=== PATIENT | male | born 1970 | race Caucasian/White ===

== ENCOUNTER → 2017-12-28 | Day surgery (SDC) | payer OTHER ==
[2017-12-21 10:52] VITALS: Ht 186.7 cm; Wt 106.8 kg
[~2017-12-28] VITALS: Ht 186.7 cm; Wt 106.8 kg
[~2017-12-28] MED LIST: ATROPINE SULFATE 0.1 MG/ML 5ML SYR IV PRN; BUPIVACAINE/EPINEPHRINE 0.5% MPF 1:200,000 30 ML VIAL ONE; CEFAZOLIN 2000MG IV PUSH 15 ML IV SCH; DEXAMETHASONE SOD INJ 4 MG/ML VIAL ONE; EpHEDrine SULFATE INJ 50 MG/ML AMP IV PRN; FENTANYL CITRATE INJ 50 MCG/1 ML 2 ML VIAL IV PRN; FENTANYL CITRATE INJ 50 MCG/1 ML 2 ML VIAL ONE; HYDROCODONE/ACETAMIN 5/325MG TAB PO PRN; IBUP-1459 PO; LACTATED RINGER'S 1000ML 1,000 ML IV SCH; LIDOCAINE HCL 2% 2 ML VIAL (20MG/ML) ONE; MIDAZOLAM HCL 1 MG/ML 2ML VIAL ONE; MoRPHine SULFATE PF 1 MG/ML 10 ML AMP/VIAL ONE; ONDANSETRON INJ 2 MG/ML 2 ML VIAL IV PRN; ONDANSETRON INJ 2 MG/ML 2 ML VIAL ONE; PROPOFOL IV EMULSION 10 MG/ML 20 ML VIAL ONE; SODIUM CHLORIDE 0.9% 1000ML 1,000 ML IV SCH
--- NOTE | 2017-12-28 06:43 | History & Physical Bridge Note ---
H&P Re-Evaluation Bridge Note: I have examined the patient, reviewed the History & Physical and in the interval since the performance of the History & Physical I have noted the following changes of clinical significance:consent obtained. No changes noted
--- NOTE | 2017-12-28 06:44 | Discharge Instructions ---
Discharge Instructions Date of Service Dec 28, 2017. Visit Reason for Visit: Right Knee Medial Meniscus Tear, Chondrosis Discharge Discharge Diagnosis / Problem: same Discharge Goals Goal(s): Decrease discomfort, Improve function Medications Stopped Medications Name(s): na Restart Stopped Medication(s): use scripts as directed Activity Recommendations Activity Limitations: as noted below Lifting Limitations: until after follow-up appointment Exercise/Sports Limitations: until after follow-up appointment May Resume Sexual Activity: when tolerated Shower/Bathe: keep incision dry Driving or Machine Use: resume 1 day after discharge Weightbearing Status: Right weightbearing (as tolerated) Anesthesia . Post Anesthesia Instructions: If you have had General Anesthesia or IV Sedation: * Do not drive today. * Resume driving when surgeon permits. * Do not make important decisions or sign legal documents today. * Call surgeon for: 1. Temperature elevations greater than 101 degrees F. 2. Uncontrollable pain. 3. Excessive bleeding. 4. Persistent nausea and vomiting. 5. Medication intolerance (nausea, vomiting or rash). * For nausea and vomiting use only clear liquids such as: tea, soda, bouillon until nausea subsides, then gradually increase diet as tolerated. * If you have any concerns or questions, call your surgeon's office. If physician is unavailable and it is an emergency, call 911 or go to the nearest emergency room. . Instructions / Follow-Up Instructions / Follow-Up The following are instructions to follow after your Arthroscopic Knee Surgery. ACTIVITY RECOMMENDATIONS: * Minimize activity until your first visit after surgery. * No excessive walking, jogging, sports or laboring. * Return to activity is individualized. Most patients are able to return to every day activities within one month. * Return to sports or intensive labor usually occurs at 2-3 months. * Driving is not permitted until at least your first postoperative visit at a minimum. Please ask your doctor when it is safe to resume driving. If you have an automatic vehicle and your left leg has been operated on, then you may begin driving as soon as you are comfortable and can drive safely. SCHOOL/WORK RECOMMENDATIONS: * You may return to sedentary work or school when you are feeling more comfortable. This is usually 3-7 days after surgery. * Expect increased discomfort with increased activity. Continue to elevate and ice the leg as much as possible. MEDICATIONS: * You will have a prescription for pain medication and an anti-inflammatory medication after surgery. * Use the pain medication for severe pain and the anti-inflammatory for less severe pain. Once the pain medication has run out, try to use the anti-inflammatory medication. If this is not effective, contact the office for assistance. * The pain medication may cause nausea, constipation and drowsiness. You should see how they affect you before driving or similar activity. * The anti-inflammatory medication may cause stomach upset and bleeding. If this occurs let your doctor know immediately . * Take a stool softener like Colace or a laxative like Senokot to prevent constipation. DIET: * Resume previous diet. SPECIAL CARE: ICE: You have the option of an ice cooler, gel packs or ice bags. * If you have an ice cooler, refer to the instructions for that device. The ice cooler may be used continuously. * If you do not have an ice cooler, you will need to use ice bags or gel packs. Do not apply ice directly to the skin. Use a thin dressing or bruna shirt between the skin and ice bag. Apply ice for 20-30 minutes and repeat every 2-4 hours. This is especially important for the first 7-10 days after surgery. Once the pain improves, use ice as needed. ELEVATION: * Keep your leg elevated at or above the level of your heart as much as possible. * Expect some increased discomfort and swelling if you are standing for any length of time. * When lying down, avoid placing anything under your knee. Rather, prop your leg up by placing several pillows under your heel or calf. DRESSING: * Your dressing will be changed at your first therapy appointment approximately 4-5 days after surgery. Band-aids, tape strips or gauze may be applied. You may then change your dressing daily. * Reapply dressing followed by the Rupesh wrap or Tubi-salvage mechanic stockinet and EBIce cooling pad (if chosen). * Always wash your hands prior to touching the incision area. * Once the stitches are removed, you may leave the wound open to air or cover with an Rupesh wrap or Tubi-salvage mechanic stockinet. * If you have been given a white elastic stocking (TRIP hose), wear as much as possible for the first 1-3 weeks depending on swelling. * Expect some bloody drainage for the first few days after surgery. * Leave the tape strips, if present, in place for 5-7 days. * Band-aids and gauze may be changed daily. CRUTCHES: * You will need to use crutches after surgery. * You may gradually progress to full weight bearing as tolerated and wean off the crutches unless otherwise advised. * Your therapist can provide assistance weaning off crutches. * Patients who have a microfracture done may need to be toe-touch weight- bearing for 4-6 weeks. BATHING: * You may shower or sponge-bathe immediately after surgery. * The dressing will need to be covered with a plastic bag or plastic wrap until the dressing is changed on the fourth or fifth day after surgery. * Once the dressing has been changed on the fourth or fifth day after surgery, you may shower and get the incision wet. * Wash with regular soap and water. * Do not bathe (submerge the incision), soak, swim or use a hot tub until the incision is completely healed over with normal skin and the doctor has given the OK to proceed. * There is no need to apply any ointments, powders or salves to your incision. * Do not apply alcohol or hydrogen peroxide directly to the incision. * Diluted peroxide (50:50 mixture with sterile saline) may be used to clean dried blood from around the incision area. BRACE: * Bracing is generally not needed after routine Arthroscopic Knee surgery. THERAPY: * You will begin therapy four or five days after surgery. * Organized therapy with the therapist is important for the first 4-6 weeks after surgery. During that time you will attend therapy 1-3 times per week. * You will also need to do daily exercises for range of motion and strength as instructed. PROBLEMS/QUESTIONS: * If you have any problems such as severe pain, numbness, tingling or high fevers or if you have any questions, please contact the office at [phone]. * It is not uncommon to have some numbness and tingling after the surgery especially if you have had a nerve block done. This should gradually improve over the first 1- 2 days. If this persists longer or worsens please contact the office. FOLLOW UP VISIT: * If not already scheduled, please call the office at to schedule a follow-up appointment for 10 days, 6 weeks and 3 months after surgery. Diet Recommendations Recommended Home Diet: resume previous diet Procedures Procedures Performed: see op note Pending Studies Studies pending at discharge: no Medical Emergencies . Who to Call and When: Medical Emergencies: If at any time you feel your situation is an emergency, please call 911 immediately. . Non-Emergent Contact Non-Emergency issues call your: Specialist Call Non-Emergent contact if: temperature is above 101.5, wound has increased drainage, wound has increased redness, wound has increased pain . . "Provider Documentation" section prepared by Alex Jacobs. .
--- NOTE | 2017-12-28 07:30 | [facility] Post Operative Brief Note ---
Immediate Operative Summary Operative Date Dec 28, 2017. Pre-Operative Diagnosis Right Knee Medial Meniscus Tear, Chondrosis Post-Operative Diagnosis Same Procedure(s) Performed Right Knee Arthroscopy, Partial Medial Meniscectomy, Chondroplasty of Patellofemoral Joint and Medial Femoral Condyle Surgeon Dr. Jacobs Appliance Adjuster Surgeon(s) Dane Rankin PA-C Estimated Blood Loss Trace Findings Consistent with Post-Op Diagnosis Fluids (cc crystalloids) 500cc Specimens None Drains None Anesthesia Type General Complication(s) none Disposition Accompanied Pt To Recover: no Overlapping Procedure I was immediately available: during the entire case
--- NOTE | 2017-12-28 08:09 | OPERATIVE REPORT ---
DATE OF OPERATION: 12/28/2017 SURGEON: Alex Jacobs MD COMMUNITY THEATER ACTOR: John Rankin PA-C. No resident or fellow available. 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 POSTOPERATIVE DIAGNOSES: 1. Medial meniscus tear. 2. Grade 4 central area of the trochlea, grade 3 area of medial facet patella, grade 3 area of medial femoral condylar area and medial meniscus tear. OPERATION PERFORMED: 1. Exam under anesthesia. 2. Diagnostic arthroscopy. 3. Extensive anterior synovectomy with chondroplasty, patellofemoral joint. 4. Limited chondroplasty, medial femoral condyle. 5. Partial medial meniscectomy. PERIOPERATIVE SITUATION: Medically cleared male with intractable knee pain. Physical exam, x-ray and MRI scan consistent with the above diagnosis. He was informed that we would not be able to eliminate all of his symptoms based on any articular disease. He states he understands this. DESCRIPTION OF PROCEDURE: The patient appropriately identified, site verified, consent verified, Ancef confirmed as being given. The right lower extremity was examined revealing no ligamentous instability. It was then sterilely injected with 20 mL of 0.5% Marcaine with epinephrine and 5 mg of Duramorph for postop pain control. The leg was then prepped and draped in usual routine fashion. Inframedial and infralateral portals were then marked and injected with 4 mL of 0.5% Marcaine with epinephrine. Inferolateral portal was then made. Inspection of the joint immediately revealed extensive synovitis, articular disease of the patellofemoral joint. The inferomedial portal was then made with needle localization and the medial articular disease of the condyle identified. There were 2 small areas about 0.5 cm2 area separately, 1 in the anterior zone, 1 in the posterior zone. Medial meniscus had degenerative tearing with an anteriorly based flap. This was resected in stable with hand and power instrumentation to stable balanced contoured rim. The chondroplasty was then performed of the medial femoral condyle, which did not expose any bone. The anterior synovectomy was then completed. The margin of the trochlear lesion had bright loose large articular flaps. These were debrided to a stable base. The entire area was approximately 1.5 cm x 1.5 cm in the central trochlea. Patella was then debrided to grade 3 on the medial facet. The medial and lateral gutters were clean. The lateral compartment had healthy articular surfaces and normal lateral meniscus. The ACL and PCL were normal. The knee was then copiously irrigated. All minor fragments removed. The procedure terminated. All instruments and fluid removed. The portals closed with 4-0 nylon, dressed with Xeroform, 4 x 4 gauze, sterile Webril, ABD pads, above knee TRIP stocking. Overall prognosis long-term for this knee is guarded based on bicompartmental articular disease and subtotal medial meniscectomy. The patient states he understood all this preop. I attest to the content of the Intraoperative Record and any orders documented therein. Any exception s are noted below.
--- NOTE | 2017-12-28 08:30 | Anesthesia Progress Nt - [facility] ---
Anesthesia Post Op Note Date & Time Dec 28, 2017 at 08:30 Vital Signs Pain Intensity: 2 Vital Signs Past 12 Hours Date Time Temp Pulse Resp B/P (MAP) Pulse Ox O2 Delivery O2 Flow Rate FiO2 12/28/17 08:14 64 12 12/28/17 08:14 63 12 95 12/28/17 08:11 125/84 12/28/17 08:11 36.3 59 12 129/85 95 Room Air 12/28/17 08:09 62 12 12/28/17 08:09 62 12 95 12/28/17 08:06 123/92 12/28/17 08:04 63 15 12/28/17 08:04 63 15 97 12/28/17 08:01 142/84 12/28/17 07:59 64 10 100 12/28/17 07:59 64 10 12/28/17 07:56 125/79 12/28/17 07:54 66 11 99 12/28/17 07:54 65 11 12/28/17 07:51 130/78 12/28/17 07:49 67 12 98 12/28/17 07:49 67 12 12/28/17 07:46 131/74 12/28/17 07:44 64 15 12/28/17 07:44 65 15 99 12/28/17 07:41 114/72 12/28/17 07:40 107/76 12/28/17 07:39 36.4 61 8 107/76 98 Mask 5 12/28/17 06:24 36.5 65 18 122/75 (91) 95 Room Air Notes Mental Status: alert / awake / arousable, participated in evaluation Pt Amnestic to Procedure: Yes Nausea / Vomiting: adequately controlled Pain: adequately controlled Airway Patency, RR, SpO2: stable & adequate BP & HR: stable & adequate Hydration State: stable & adequate Anesthetic Complications: no major complications apparent
[2017-12-28 08:35] VITALS: TEMP 36.7
[2017-12-28 09:13] VITALS: BP 128/81; PULSE 60; O2SAT 96
--- NOTE | 2017-12-28 12:53 | [facility] Operative Report ---
Operative Report Operative Date Dec 28, 2017. Pre-Operative Diagnosis Right Knee Medial Meniscus Tear, Chondrosis Post-Operative Diagnosis Right knee Same Procedure(s) Performed Right Knee Arthroscopy, Partial Medial Meniscectomy, Chondroplasty of Patellofemoral Joint and Medial Femoral Condyle Surgeon Dr. Jacobs Link Trainer Teacher Surgeon(s) Dane Rankin PA-C Estimated Blood Loss Trace Findings Right knee medial meniscal tear, chondral changes MFC and PF joint Fluids 500cc Specimens None Drains None Anesthesia Type General Complication(s) none Disposition no Indications This 47-year-old white male presented to the office with complaints of right knee pain. He had tried conservative care measures without resolution of his discomfort. He elected to proceed with surgical intervention after being educated about potential risks and outcomes. Preoperative imaging was obtained. Description of Procedure Patient was taken to the operating room where he was given general anesthesia. He was prepped and draped in usual sterile fashion. Please see Dr. Jacobs's operative report for specifics of the procedure. I was present for the entire case from initial patient positioning through final wound closure. Assistance was provided in patient positioning, arthroscopy, and final wound closure. Patient was taken to the recovery room in satisfactory condition. I attest to the content of the Intraoperative Record and any orders documented therein. Any exceptions are noted below.
== END | disposition home or self-care (01) ==
LOC: X.SURG 06:10
PROVIDERS: ATTEND Physical Medicine & Rehabilitation Sports Medicine
DX: S83.241A Other tear of medial meniscus, current injury, right knee, initial encounter (principal); M24.10 Other articular cartilage disorders, unspecified site; X58.XXXA Exposure to other specified factors, initial encounter